=== PATIENT | male | born 1985 | race Caucasian/White ===

== ENCOUNTER 2017-11-06 15:20 | Emergency (ER) | payer BC ==
--- NOTE | 2017-11-06 15:30 | EDPHY ---
H & P Time Seen by Provider: 11/06/17 15:26 HPI/ROS: CHIEF COMPLAINT: Toothache HISTORY OF PRESENT ILLNESS: Patient was at Dr. Jj his dentist 8 days ago for tooth pain and was diagnosed with an abscessed right posterior molar and started on amoxicillin and Vicodin. He has an appoint with Dr. Wilson on Thursday. Antibiotics finished 3 days ago and today he called the oral surgeon who called in a prescription for antibiotics which he needs to go get after this ED visit. Here for pain control. No trouble breathing or swallowing and no facial swelling and no fever or chills. REVIEW OF SYSTEMS: As above PAST MEDICAL HISTORY: Negative General Appearance: Alert and conversant, cooperative. Normal pharynx, no trismus. Mucous membranes are moist. Gum swelling around right posterior 2 molars. Normal voice and no stridor or drooling. Normal right tympanic membrane. No external facial swelling or redness. Emergency Department course/MDM: PDMP query negative at 1530. Vicodin 11, he will fill his antibiotic prescription today at the pharmacy, has oral surgery follow-up on Thursday. Unlikely to have deep space infection or facial abscess requiring emergent surgical drainage at this time. No airway compromise. Able to stay hydrated and take oral medications. Requesting injectable medications, given Dilaudid 0.5 mg subcu. Smoking Status: Never smoked Constitutional: Initial Vital Signs Temperature (C) 36.8 C 11/06/17 15:22 Heart Rate 55 L 11/06/17 15:22 Respiratory Rate 18 11/06/17 15:22 Blood Pressure 155/81 H 11/06/17 15:22 O2 Sat (%) 97 11/06/17 15:22 O2 Delivery Mode Room Air Allergies/Adverse Reactions: No Known Allergies Allergy (Unverified 11/06/17 15:24) Home Medications: Medication Instructions Recorded Hydrocodone/Acetaminophen [Vicodin 1 each PO Q6 #11 tablet 11/06/17 5-300 mg Tablet] MDM/Departure - MDM Medications Given: Discontinued Medications Hydrocodone Bitart/Acetaminophen ([place] 5/325) 1 tab PO EDNOW ONE Stop: 11/06/17 15:40 Last Admin: 11/06/17 16:00 Dose: Not Given Hydromorphone HCl (Dilaudid) 0.5 mg SC EDNOW ONE Stop: 11/06/17 15:50 Last Admin: 11/06/17 15:53 Dose: 0.5 mg - Depart Disposition: Home, Routine, Self-Care Clinical Impression: Tooth abscess Condition: Good Instructions: Dental Abscess (ED) Additional Instructions: Fill and take antibiotics as directed by your oral surgeon. Return if you get facial swelling or worse or severe pain or trouble breathing or swallowing. Prescriptions: Hydrocodone/Acetaminophen [Vicodin 5-300 mg Tablet] 1 each PO Q6 #11 tablet Referrals: Alvaro Wilson DDS [Doctor of Dental Surgery] - As per Instructions
[2017-11-06] MEDS ORDERED: HYDROCODONE/APAP 5/325 TAB PO ONE (15:39)
[2017-11-06] MEDS ORDERED: HYDROmorphONE/DILAUDID 2 MG/ML INJ SC ONE (15:49)
[2017-11-06 16:04] VITALS: BP 158/95
== END 2017-11-06 16:04 | disposition home or self-care (01) ==
DX: K04.7 Periapical abscess without sinus (principal)
CPT/HCPCS: J1170